=== PATIENT | female | born 1940 | race Caucasian/White ===

== ENCOUNTER 2017-12-19 01:48 | Inpatient (IN) | payer OTHER ==
[~2017-12-19] VITALS: Ht 157.5 cm; Wt 76.2 kg
[~2017-12-19 01:48] MED LIST: ARMOUR THYROID60 M1 PO; ASPIRIN EC81 M1 PO; ATORVASTATIN CA10 M1 PO; CILOSTAZOL50 M1 PO; CYANOCOBAL1000 MCG/2 SQ; HYDROCHLOROTH12.5 M3 PO; LYRICA50 M1 PO; METOPROLOL SUCC25 M1 PO; PLAVIX75 M1 PO; TRAMADOL HCL50 M1 PO; VALSARTAN320 M1 PO
--- NOTE | 2017-12-19 15:29 | Operative Report ---
Operative/Inv Procedure Report Surgery Date: 12/19/17 Name of Procedure: 1. left groin cut down 2. aortogram 3. angioplasty and stenting of the left external iliac artery with 7mm x 80 cordis stent and post dilation with 8mm x 80 balloon. 4. thrombectomy 5. placement of pravena incisional vac Pre-Operative Diagnosis: left leg rest pain Post-Operative Diagnosis: same Estimated Blood Loss: 50ml to 100ml Surgeon/Market Manager: Benedicto CALLAWAY,Zan assistant professor of archaeology-- ron singh MD Anesthesia: general endotracheal tube Specimens: wound culture Complications: none Condition: stable, extubated, transferred to pacu Operative Indication: 77 y/o f w/ hx of PAD s/p left common femoral endarterectomy with common and external iliac stenting. Pt was seen post operatively and stent was thrombosed. Uderwent diagnostic angiogram. Therefore decided to take pt back to re open left groin and attempt to re-open stent as pt has ischemic rest pain with impending tissue loss. risk/benefits alternatives discussed including risk of infection. Operative/Procedure Note Note: The patient was brought to the operating room timeout was done to verify name MRN and date of . Subsequently she was placed under general anesthesia in the supine position. We proceeded to prep and drape her bilateral groins. After antibiotics were given incision was reopened with a 15 blade scalpel. There was a previous sinus in the proximal portion of the incision and therefore we sent a wound culture from this area to guide abx treatement. We used Metzenbaums scissors to remove the previous stitches. Subsequently we identified the femoral artery which was densely adhesed to the surrounding tissue. We were able to circumferentially dissect proximally and distally in order to gain control of vessel loops. We then proceeded using micropuncture needle and wire to access the common femoral artery distal to where the previous stent was using a Glidewire we were able to go through the previous external iliac stent already up into the aorta. We then advanced a Omni flush catheter and shot an aortogram. This showed that there was some thrombus within the previous left external iliac stent and that there was some proximal narrowing and dissection to the external iliac stent. Therefore we plan to stent proximal to where the previous external iliac stent was. We advanced the Glidewire up into the infrarenal aorta we then used an 7 mm x 80 Cordis stent this was placed proximal to the previous external iliac stent and deployed with overlap into the previous vihabahn stent. W then proceeded to angioplasty the entire iliac system with a 8 mm x 80 balloon. Subsequently we used a balloon to perform a thrombectomy of the stent of the clot within the stents we withdrew this out of the small arteriotomy we had made and flushed out the artery. At this time there was very good flow through the artery and a good palpable pulse with good flow and performed a we are satisfied that we had achieved a good result we then proceeded to obtain copies hemostasis the combination of additional 6-0 Prolene stitches and clips and Gelfoam. The arteriotomy was closed also with a 6-0 Prolene pursestring stitch. We then irrigated the incision with antibiotic irrigation proceeded to close the deep layer with a 2-0 Vicryl in the subcutaneous layers with 3-0 Vicryl and closed the skin with amy RECORD of the procedure the patient's procedure was estimated to her room stable condition Findings: The infra renal aorta patent without any significant stenosis. The bilateral common iliac arteries had stents in postion which were patent with any stenosis. left external ilac artery had thrombus and area of stenosis proximal to viahabahn stent. There was thrombus within stent extending down into the common femoral artery. This was sucessfully treated with placement of a 7mm x 80 cordis stent with thrombectomy.
[2017-12-19 16:57] LABS: ABSOLUTE BASOPHIL COUNT 0 /CUMM (0.0-0.2); ABSOLUTE EOSINOPHIL COUNT 0.2 /CUMM (0.0-0.7); ABSOLUTE GRANULOCYTE CT 3.5 /CUMM (1.4-6.5); ABSOLUTE LYMPH COUNT 0.5 /CUMM (1.2-3.4); ABSOLUTE MONOCYTE COUNT 0.3 /CUMM (0.10-0.60); BASOPHIL % 0.6 % (0.0-2.0); EOSINOPHIL % 4.3 % (0-5); GRANULOCYTE % 76.5 % (42.2-75.2); HEMATOCRIT 23.6 % (37-47); MEAN CORPUSCULAR HGB 30.2 PG (27.0-31.0); MEAN CORPUSCULAR HGB CONC 32.8 G/DL (33.0-37.0); MEAN CORPUSCULAR VOLUME 91.9 FL (81.0-99.0); MEAN PLATELET VOLUME 9.3 FL (7.4-10.4); PLATELET COUNT 204 /CUMM (130-400); RBC DISTRIBUTION WIDTH 15.5 % (11.5-14.5); RED BLOOD CELL CT 2.57 /CUMM (4.20-5.40); WHITE BLOOD CELL COUNT 4.6 /CUMM (4.8-10.8)
--- NOTE | 2017-12-19 17:28 | Cons- Infect Disease ---
General Information and HPI Consulting Request Date of Consult: 12/19/17 Requested By: Zan Diane MD Reason for Consult: Rule out a surgical site infection Source of Information: patient, family History of Present Illness: This is a 77-year-old woman, status post aortic valve replacement 13 years prior to admission, with hypertension, hypothyroidism and vitamin B12 deficiency, who developed left leg pain 9 months prior to admission, status post left common femoral endarterectomy with common and external iliac stenting, with a bovine patch, one month prior to admission, with her postop course complicated by thrombosis of the stent, confirmed on angiogram 1 week prior to admission, and a sinus tract in the left groin, associated with mild erythema, with no fevers or chills, begun on Bactrim 3 days prior to admission after a superficial culture was sent, with the results of this culture not presently available, admitted today for a repeat angioplasty, with a bovine patch, stenting of the left external iliac artery and thrombectomy, with Cefazolin prophylaxis. At present she notes some discomfort in the left groin but is otherwise without complaints. Allergies/Medications Allergies: Coded Allergies: alendronate sodium (From FOSAMAX) (flank pains 12/16/17) codeine (nightmares 12/16/17) Home Med List: Aspirin (Ecotrin*) 81 MG TABLET.DR 1 TAB PO DAILY HEART HEALTH (Reported) Atorvastatin Calcium 10 MG TABLET 1 TAB PO DAILY HEART HEALTH (Reported) Cilostazol 50 MG TABLET 1 TAB PO DAILY HEART HEALTH (Reported) Clopidogrel Bisulfate (Plavix) 75 MG TABLET 1 TAB PO DAILY HEART HEALTH ( Reported) Cyanocobalamin (Vitamin B-12) (Cyanocobalamin Injection) 1,000 MCG/ML VIAL 1, 000 MCG SQ MONTHLY PERNICIOUS ANEMIA (Reported) Hydrochlorothiazide 12.5 MG CAPSULE 1 TAB PO DAILY HYPERTENSION (Reported) Metoprolol Succinate 25 MG TAB 1 TAB PO BID HEART HEALTH (Reported) Pregabalin (Lyrica) 50 MG CAPSULE 1 CAP PO DAILY PAIN (Reported) Thyroid,Pork (Junior Thyroid) 60 MG TABLET 1 TAB PO DAILY THYROID (Reported) Tramadol HCl 50 MG TABLET 1 TAB PO DAILY PAIN (Reported) Valsartan 320 MG TABLET 1 TAB PO DAILY HEART HEALTH (Reported) Past History Medical History Cardiovascular: hypertension Endocrine: hypothyroidism, Vit B12 deficiency Isolation History: Standard Surgical History Surgical History: s/p bovine AVR 2004 Psychosocial History Smoking Status: Never Smoked Review of Systems Review of Systems All Other Systems: Reviewed and Negative Exam & Diagnostic Data Last 24 Hrs of Vital Signs/I&O Vital signs are stable Physical Exam Other Physical Findings: Afebrile. She is awake and alert in no acute distress. Skin reveals no rash. HEENT negative. Neck is supple with no adenopathy. Lungs are clear. Heart regular rhythm with a 2/6 systolic ejection murmur. Abdomen is soft, nontender with positive bowel sounds. Back no CVA tenderness. Extremities left groin incisional wound VAC in place, with a drain; slightly cool feet bilaterally, with 1+ pulses, with no cyanosis, clubbing or edema. Neuro is without focality. Last 24 Hours of Lab Results: Laboratory Tests 12/19 1600 Chemistry Sodium (137 - 145 mmol/L) 139 Potassium (3.5 - 5.1 mmol/L) 3.7 Chloride (98 - 107 mmol/L) 108 H Carbon Dioxide (22 - 30 mmol/L) 23 Anion Gap (5 - 16) 8 BUN (7 - 17 mg/dL) 17 Creatinine (0.5 - 1.0 mg/dL) 1.1 H Estimated GFR (>60 ml/min) 48 L BUN/Creatinine Ratio (7 - 25 %) 15.5 Hematology CBC w Diff NO MAN DIFF REQ WBC (4.8 - 10.8 /CUMM) 4.6 L RBC (4.20 - 5.40 /CUMM) 2.57 L Hgb (12.0 - 16.0 G/DL) 7.7 L Hct (37 - 47 %) 23.6 L MCV (81.0 - 99.0 FL) 91.9 MCH (27.0 - 31.0 PG) 30.2 MCHC (33.0 - 37.0 G/DL) 32.8 L RDW (11.5 - 14.5 %) 15.5 H Plt Count (130 - 400 /CUMM) 204 MPV (7.4 - 10.4 FL) 9.3 Gran % (42.2 - 75.2 %) 76.5 H Lymphocytes % (20.5 - 51.1 %) 11.4 L Monocytes % (1.7 - 9.3 %) 7.2 Eosinophils % (0 - 5 %) 4.3 Basophils % (0.0 - 2.0 %) 0.6 Absolute Granulocytes (1.4 - 6.5 /CUMM) 3.5 Absolute Lymphocytes (1.2 - 3.4 /CUMM) 0.5 L Absolute Monocytes (0.10 - 0.60 /CUMM) 0.3 Absolute Eosinophils (0.0 - 0.7 /CUMM) 0.2 Absolute Basophils (0.0 - 0.2 /CUMM) 0 Last 24 Hours of Denys Results: Urine culture December 19 pending OR culture left inguinal wound pending Assessment/Plan Assessment/Plan Impression: This is a 77-year-old woman, status post aortic valve replacement 13 years prior to admission, status post left common femoral endarterectomy with common and external iliac stenting, with a bovine patch, one month prior to admission, with her postop course complicated by thrombosis of the stent and a sinus tract in the left groin, associated with mild erythema, with no fevers or chills, begun on Bactrim 3 days prior to admission after a superficial culture was sent, admitted today for a repeat angioplasty, with a bovine patch, and stenting of the left external iliac artery and thrombectomy. The significance of the sinus tract is unclear. Based on my discussion with Vascular surgery this was felt to extend only to the soft tissues of the left groin and not the artery; therefore an endovascular infection would be less likely. The report of erythema might suggest a cellulitis, though she has no fever or leukocytosis. The superficial culture that was sent 3 days prior to admission may be of some help in identifying the bacteria responsible for the presumed infection, though it may be contaminated with skin ko. The OR culture sent today may be more helpful, though she has been on Bactrim for 3 days, which may affect the results. She can be covered empirically for the most likely pathogens, which would include Staph aureus, including MRSA, and gram- negative rods, given the location of the wound, pending these cultures. Of note she is status post aortic valve replacement; therefore blood cultures should be obtained, though these may be affected by her recent antibiotics. Suggestion: 1. Obtain blood cultures 2 2. Obtain results of the culture sent as an outpatient and follow-up the OR culture 3. Begin Vancomycin 1 g IV every 24 hours and Ceftazidime 1 g IV every 8 hours pending above Consult Acknowledgment - Thank you for your consult request.
--- NOTE | 2017-12-19 17:48 | PN- Vascular Surgery ---
Subjective Subjective: POST-OP CHECK PT IN BED, MINIMAL LEFT GROIN PAIN. STILL HAS SENSATION OF A "BAND-LIKE PRESSURE" AROUND LEFT FOOT THAT WAS THERE PRIOR TO SURGERY. DENIES CP/SOB/KLEIN Objective Vital Signs and I&Os VVS AFEBRILE Physical Exam: GEN-NAD RESP- CLEAR CARDIO-RRR ABD-ND,SOFT, NT LEFT GROIN WITH PRAVENA IN PLACE WITH SANGUINEOUS DRAINAGE. INFERIOR ASPECT OF DRESSING RE-INFORCED WITH SMALL TEGADERM EXT- NO SIGNAL APPRECIATED ON LEFT PT OR DP, WAVEFORM SEEN ON PULSE OX WHEN PLACED ON LEFT 2ND TOE. +SIGNAL ON RIGHT PT. FEET ARE WARM AND DRY BILATERALLY DISTAL SENSORY AND MOTOR FUNCTION INTACT Results Last 48 Hours of Labs: Laboratory Tests 12/19 1600 Chemistry Sodium (137 - 145 mmol/L) 139 Potassium (3.5 - 5.1 mmol/L) 3.7 Chloride (98 - 107 mmol/L) 108 H Carbon Dioxide (22 - 30 mmol/L) 23 Anion Gap (5 - 16) 8 BUN (7 - 17 mg/dL) 17 Creatinine (0.5 - 1.0 mg/dL) 1.1 H Estimated GFR (>60 ml/min) 48 L BUN/Creatinine Ratio (7 - 25 %) 15.5 Hematology CBC w Diff NO MAN DIFF REQ WBC (4.8 - 10.8 /CUMM) 4.6 L RBC (4.20 - 5.40 /CUMM) 2.57 L Hgb (12.0 - 16.0 G/DL) 7.7 L Hct (37 - 47 %) 23.6 L MCV (81.0 - 99.0 FL) 91.9 MCH (27.0 - 31.0 PG) 30.2 MCHC (33.0 - 37.0 G/DL) 32.8 L RDW (11.5 - 14.5 %) 15.5 H Plt Count (130 - 400 /CUMM) 204 MPV (7.4 - 10.4 FL) 9.3 Gran % (42.2 - 75.2 %) 76.5 H Lymphocytes % (20.5 - 51.1 %) 11.4 L Monocytes % (1.7 - 9.3 %) 7.2 Eosinophils % (0 - 5 %) 4.3 Basophils % (0.0 - 2.0 %) 0.6 Absolute Granulocytes (1.4 - 6.5 /CUMM) 3.5 Absolute Lymphocytes (1.2 - 3.4 /CUMM) 0.5 L Absolute Monocytes (0.10 - 0.60 /CUMM) 0.3 Absolute Eosinophils (0.0 - 0.7 /CUMM) 0.2 Absolute Basophils (0.0 - 0.2 /CUMM) 0 Assessment/Plan Assessment/Plan 77YO F SP LEFT ANGIO WITH EXTERNAL ILIAC STENT POD0. STABLE Q1H NEURO CHECKS DVT PPX- TO GET ASA TODAY, WILL LIKELY START HEPARIN DRIP IN AM ABX PER ID, APPRECIATE INPUT WOUNDCARE- PRAVENA BEDREST OVERNIGHT HH DIET IVF OVERNIGHT KAHN TO STAY IN OVERNIGHT Core Measures Venous Thromboembolism VTE Risk Factors Surgery No Mechanical VTE Prophylaxis d/t N/A MechProphylax Ordered No VTE Pharm Prophylaxis d/t Surgical Contraindication
[2017-12-19 20:00] VITALS: BP 130/60
--- NOTE | 2017-12-19 20:05 | Event Note ---
Event Note Event Note: Called by RN to evaluate left groin incisional bleeding. just arrived from PACU to ICU. Pt stable, SBP 120s, [id number]. Some pain in left foot, no worse than preop, no motor difficulties. Provena vac on, blood leaking from tegaderm- ? clotted. canister already changed in PACU. Dressing taken down, small oozing from 2 areas of staple line. some ecchymosis and ttp at incision, though soft. wound redressed with bulky gauze dressing, compressed with tape and iv fluid bag. No palpable pedal pulses, no signals appreciated (other than right pt). left foot cool but not cold, good color, gross sensation intact, gross motor intact, nontender. BRYAN Diane, aware of findings. Will continue to closely monitor, continue q1hr neurovasc checks by nursing
[2017-12-20] VITALS: BP 98/50
[2017-12-20 01:08] LABS: ABSOLUTE BASOPHIL COUNT 0 /CUMM (0.0-0.2); ABSOLUTE EOSINOPHIL COUNT 0 /CUMM (0.0-0.7); ABSOLUTE GRANULOCYTE CT 3.8 /CUMM (1.4-6.5); ABSOLUTE LYMPH COUNT 0.4 /CUMM (1.2-3.4); ABSOLUTE MONOCYTE COUNT 0.2 /CUMM (0.10-0.60); BASOPHIL % 0.3 % (0.0-2.0); EOSINOPHIL % 0.1 % (0-5); GRANULOCYTE % 86.3 % (42.2-75.2); MEAN CORPUSCULAR HGB CONC 33.5 G/DL (33.0-37.0); MEAN CORPUSCULAR VOLUME 89.6 FL (81.0-99.0); MEAN PLATELET VOLUME 8.7 FL (7.4-10.4); PLATELET COUNT 187 /CUMM (130-400); RBC DISTRIBUTION WIDTH 15.4 % (11.5-14.5); RED BLOOD CELL CT 2.17 /CUMM (4.20-5.40); WHITE BLOOD CELL COUNT 4.5 /CUMM (4.8-10.8)
[2017-12-20 01:16] LABS: PT 12.2 SEC (9.4-12.5); PTT 26 SEC (25-37)
[2017-12-20 01:18] LABS: HEMATOCRIT 19.5 % (37-47)
[2017-12-20 04:00] VITALS: BP 122/44
--- NOTE | 2017-12-20 06:41 | PN- Vascular Surgery ---
Subjective Subjective: -still with pain in left foot "like bands around my foot". no cp/sob/n/v. bedrest overnight -remains in icu for close nursing assessment (q1hr neurovasc checks), intermittent pt signal overnight per rn -SBP into 80s and 90s overnight, UO slowed (marie), bolused 500cc NS. labs checked- H&H 6.5/19.5 (pacu hct 23, preop hct in paper chart 37), BUN/Cr elevated -2U prbc given- SBP now in 120s -UO improved Objective Vital Signs and I&Os Vital Signs Date Time Temp Pulse Resp B/P B/P Pulse O2 O2 Flow FiO2 Mean Ox Delivery Rate 12/20 0400 97.5 63 14 122/44 98 Room Air 12/20 0400 97 Room Air 12/20 0000 95 Room Air 12/20 0000 97.7 84 12 98/50 95 Room Air 12/19 2214 108 21 110/52 12/20 1999 98.8 92 16 130/60 96 Room Air Room Air 12/19 2000 97 Room Air 12/19 1858 96 Room Air Room Air Intake & Output 12/20 0800 12/20 0000 12/19 1600 12/19 0800 12/19 0000 12/18 1600 Intake Total 695 Output Total 100 Balance 595 Intake, IV 335 Intake, Oral 360 Number 0 Bowel Movements Output, Urine 100 Patient 165 lb Weight Weight Reported by Patient Measurement Method Physical Exam: gen- nad card- s1s2 rrr pulm- ctab abd- soft nt ext- calves soft nt bl rle: groin w ecchymosis, ttp, +pt signal, foot warm lle: groin incision dressed, foot warm, no palp pulses, no signals, gross motor/ sensation intact, small eschar heel, multiple dark lesions on toes (chronic per pt) Current Medications: Current Medications Sig/Gabi Start time Last Medication Dose Route Stop Time Status Admin Acetaminophen 1,000 MG .STK-MED ONE 12/19 1534 DC IV 12/19 1535 Aspirin Buffered 81 MG DAILY 12/20 1000 DC PO Aspirin Buffered 81 MG DAILY 12/19 2200 AC 12/19 PO 2212 Aspirin Buffered 81 MG DAILY 12/19 1550 DC PO Atorvastatin Calcium 10 MG 1700 12/20 1700 DC PO Atorvastatin Calcium 10 MG 1700 12/20 1700 AC PO Ceftazidime 1,000 MG IQ8 12/20 0000 AC 12/20 IV 0011 Cilostazol 50 MG DAILY 12/20 1000 CAN PO Dextrose/Sodium 1,000 ML .[id number] 12/20 1999 AC 12/19 Chloride IV 2000 Docusate Sodium 100 MG BID 12/19 2199 AC PO Fentanyl Citrate 300 MCG .STK-MED ONE 12/19 1148 DC IM 12/19 1149 Hydrochlorothiazide 12.5 MG DAILY 12/20 1000 DC PO Hydrochlorothiazide 12.5 MG DAILY 12/20 1000 AC PO Losartan Potassium 50 MG DAILY 12/20 1000 DC PO Losartan Potassium 50 MG DAILY 12/20 1000 AC PO Metoprolol Tartrate 25 MG BID 12/19 2199 DC PO Metoprolol Tartrate 25 MG BID 12/19 2199 AC 12/19 PO 2214 Morphine Sulfate 8 MG .STK-MED ONE 12/19 1223 DC IM 12/19 1224 Ondansetron HCl 4 MG Q6P PRN 12/20 1999 AC IV Oxycodone/ 1 TAB Q4P PRN 12/20 1999 AC 12/19 Acetaminophen PO 2219 Oxycodone/ 2 TAB Q4P PRN 12/20 1999 AC Acetaminophen PO Pregabalin 50 MG DAILY 12/20 1000 DC PO Pregabalin 50 MG DAILY 12/20 1000 AC PO Sodium Chloride 500 ML BOLUS ONE 12/20 0030 DC 12/20 IV 12/20 0129 0025 Thyroid 1 GR DAILY AC 12/20 0700 DC PO Thyroid 1 GR DAILY AC 12/20 0700 AC PO Tramadol HCl 50 MG DAILY 12/20 1000 DC PO Tramadol HCl 50 MG DAILY 12/20 1000 AC PO Vancomycin HCl 1,000 MG DAILY 12/19 1811 AC 12/19 Dextrose/Water 250 ML IV 2108 Results Last 48 Hours of Labs: Laboratory Tests 12/20 12/20 0600 0052 Chemistry Sodium (137 - 145 mmol/L) Cancelled 134 L Potassium (3.5 - 5.1 mmol/L) Cancelled 4.5 Chloride (98 - 107 mmol/L) Cancelled 102 Carbon Dioxide (22 - 30 mmol/L) Cancelled 23 Anion Gap (5 - 16) Cancelled 8 BUN (7 - 17 mg/dL) Cancelled 20 H Creatinine (0.5 - 1.0 mg/dL) Cancelled 1.3 H Estimated GFR (>60 ml/min) 40 L BUN/Creatinine Ratio (7 - 25 %) Cancelled 15.4 Coagulation PT (9.4 - 12.5 SEC) Cancelled 12.2 INR (0.90 - 1.19) Cancelled 1.12 APTT (25 - 37 SEC) 26 Hematology CBC w Diff Cancelled MAN DIFF ORDERED WBC (4.8 - 10.8 /CUMM) Cancelled 4.5 L RBC (4.20 - 5.40 /CUMM) Cancelled 2.17 L Hgb (12.0 - 16.0 G/DL) Cancelled 6.5 *L Hct (37 - 47 %) Cancelled 19.5 *L MCV (81.0 - 99.0 FL) Cancelled 89.6 MCH (27.0 - 31.0 PG) Cancelled 30.0 MCHC (33.0 - 37.0 G/DL) Cancelled 33.5 RDW (11.5 - 14.5 %) Cancelled 15.4 H Plt Count (130 - 400 /CUMM) Cancelled 187 MPV (7.4 - 10.4 FL) Cancelled 8.7 Gran % (42.2 - 75.2 %) 86.3 H Lymphocytes % (20.5 - 51.1 %) 8.4 L Monocytes % (1.7 - 9.3 %) 4.9 Eosinophils % (0 - 5 %) 0.1 Basophils % (0.0 - 2.0 %) 0.3 Absolute Granulocytes (1.4 - 6.5 /CUMM) 3.8 Segmented Neutrophils (42.2 - 75.2 %) 77 H Band Neutrophils (0.0 - 5.0 %) 1 Absolute Lymphocytes (1.2 - 3.4 /CUMM) 0.4 L Lymphocytes (20.5 - 51.1 %) 14 L Monocytes (1.7 - 9.3 %) 7 Absolute Monocytes (0.10 - 0.60 /CUMM) 0.2 Absolute Eosinophils (0.0 - 0.7 /CUMM) 0 Basophils (0.0 - 2.0 %) 1 Absolute Basophils (0.0 - 0.2 /CUMM) 0 Platelet Estimate (ADEQUATE) ADEQUATE Polychromasia 1+ Poikilocytosis 1+ Ovalocytes 1+ Other Body Source Fld Total RBCs Counted (%) 100 03/19 1600 Chemistry Sodium (137 - 145 mmol/L) 139 Potassium (3.5 - 5.1 mmol/L) 3.7 Chloride (98 - 107 mmol/L) 108 H Carbon Dioxide (22 - 30 mmol/L) 23 Anion Gap (5 - 16) 8 BUN (7 - 17 mg/dL) 17 Creatinine (0.5 - 1.0 mg/dL) 1.1 H Estimated GFR (>60 ml/min) 48 L BUN/Creatinine Ratio (7 - 25 %) 15.5 Hematology CBC w Diff NO MAN DIFF REQ WBC (4.8 - 10.8 /CUMM) 4.6 L RBC (4.20 - 5.40 /CUMM) 2.57 L Hgb (12.0 - 16.0 G/DL) 7.7 L Hct (37 - 47 %) 23.6 L MCV (81.0 - 99.0 FL) 91.9 MCH (27.0 - 31.0 PG) 30.2 MCHC (33.0 - 37.0 G/DL) 32.8 L RDW (11.5 - 14.5 %) 15.5 H Plt Count (130 - 400 /CUMM) 204 MPV (7.4 - 10.4 FL) 9.3 Gran % (42.2 - 75.2 %) 76.5 H Lymphocytes % (20.5 - 51.1 %) 11.4 L Monocytes % (1.7 - 9.3 %) 7.2 Eosinophils % (0 - 5 %) 4.3 Basophils % (0.0 - 2.0 %) 0.6 Absolute Granulocytes (1.4 - 6.5 /CUMM) 3.5 Absolute Lymphocytes (1.2 - 3.4 /CUMM) 0.5 L Absolute Monocytes (0.10 - 0.60 /CUMM) 0.3 Absolute Eosinophils (0.0 - 0.7 /CUMM) 0.2 Absolute Basophils (0.0 - 0.2 /CUMM) 0 Assessment/Plan Assessment/Plan A- POD1 sp left groin cutdown/iliac angio/thrombectomy, ect iliac stent, with incisional oozing postop- provena vac removed and bulky gauze dressing applied, with acute blood loss anemia posetoperatively requiring 2u prbc transfusion with good response, with no dopplerable pedal signals appreciated this am. P- check post-transfusion labs at noon keep marie in place in setting of EZEKIEL (prerenal, dehydration) cont ivf ?anticoagulation?- initial plan was to start therapeutic heparin gtt this am, will ajay w attending diet as tolerated oob ok this am home meds- hold antihtns if hypotensive discussed with Dr. Diane Core Measures Venous Thromboembolism VTE Risk Factors Surgery No Mechanical VTE Prophylaxis d/t N/A MechProphylax Ordered No VTE Pharm Prophylaxis d/t Surgical Contraindication
[2017-12-20 08:00] VITALS: BP 128/50
--- NOTE | 2017-12-20 08:34 | RADIOLOGY REPORT ---
EXAMINATION: Iliac femoral arteriogram, stent insertion angioplasty and thrombectomy, intraoperative CLINICAL INDICATION: Vascular disease COMPARISON: There are no prior studies for comparison. TECHNIQUE: Intraoperative fluoroscopic images.. FINDINGS/IMPRESSION: Irregularity of the siu of the arterial structures is consistent with presence of calcified atherosclerotic plaque. Fluoroscopy time: 7 minutes and 49 seconds. Images: 351
--- NOTE | 2017-12-20 10:00 | PN- Vascular Surgery ---
Subjective Subjective: Pt seen and examined. Still has some left foot pain but overall foot apperas improved. recieved 2 uprbcs last night for low uop and hct of 19. now making good urine. hemodynamically stable. Review of Systems: right foot pain Objective Vital Signs and I&Os Vital Signs Date Time Temp Pulse Resp B/P B/P Pulse O2 O2 Flow FiO2 Mean Ox Delivery Rate 12/20 0941 75 138/44 12/20 0941 76 138/44 12/20 0800 97.6 62 18 128/50 96 Room Air 12/20 0400 97.5 63 14 122/44 98 Room Air 12/20 0400 97 Room Air 12/20 0000 95 Room Air 12/20 0000 97.7 84 12 98/50 95 Room Air 12/19 2214 108 21 110/52 12/20 1999 98.8 92 16 130/60 96 Room Air Room Air 12/20 1999 97 Room Air 12/19 1858 96 Room Air Room Air Intake & Output 12/20 1600 12/20 0800 12/20 0000 12/19 1600 12/19 0800 12/19 0000 Intake Total 1095 695 Output Total 250 100 Balance 845 595 Intake, Blood 520 Product Intake, IV 575 335 Intake, Oral 0 360 Number 0 0 Bowel Movements Output, Urine 250 100 Patient 165 lb Weight Weight Reported by Patient Measurement Method ok Physical Exam: groin incision c/d/i. left foot wwp with good cap refill. faint pt signal. Assessment/Plan Assessment/Plan 77 y/o f w/ pad s/p left groin cut down, thrombectomy and iliac stent for ischemic rest pain in setting of thromosed iliac stent. --will start heparin 500 units non titrating. continue asa. dc plavix/pletal -on abx per id. culture growing staph aureus. -oob/ambulate -dc marie repeat hct. Core Measures Venous Thromboembolism VTE Risk Factors Surgery No Mechanical VTE Prophylaxis d/t N/A MechProphylax Ordered No VTE Pharm Prophylaxis d/t Surgical Contraindication
--- NOTE | 2017-12-20 10:33 | PN- Infect Dx ---
Subjective Subjective: Afebrile. She continues to complain of a band like pain in the left foot, which was present prior to admission. She has minimal discomfort in the left groin. Objective Last 24 Hrs of Vital Signs/I&O Vital Signs Date Time Temp Pulse Resp B/P B/P Pulse O2 O2 Flow FiO2 Mean Ox Delivery Rate 12/20 0941 75 138/44 12/20 0941 76 138/44 12/20 0800 97.6 62 18 128/50 96 Room Air 12/20 0400 97.5 63 14 122/44 98 Room Air 12/20 0400 97 Room Air 12/20 0000 95 Room Air 12/20 0000 97.7 84 12 98/50 95 Room Air 12/19 2214 108 21 110/52 12/20 1999 98.8 92 16 130/60 96 Room Air Room Air 12/20 1999 97 Room Air 12/19 1858 96 Room Air Room Air Intake & Output 12/20 1600 12/20 0800 12/20 0000 Intake Total 1095 695 Output Total 250 100 Balance 845 595 Intake, Blood 520 Product Intake, IV 575 335 Intake, Oral 0 360 Number 0 0 Bowel Movements Output, Urine 250 100 Patient 165 lb Weight Weight Reported by Patient Measurement Method Physical Exam Other Physical Findings: She appears comfortable in no acute distress Lungs are clear Heart regular rhythm with a 1/6 systolic ejection murmur Extremities left groin dressing intact; left foot cool to touch, with a palpable pulse Kimball catheter remains in place Results Last 24 Hours of Lab Results: Laboratory Tests 12/20 12/20 0600 0052 Chemistry Sodium (137 - 145 mmol/L) Cancelled 134 L Potassium (3.5 - 5.1 mmol/L) Cancelled 4.5 Chloride (98 - 107 mmol/L) Cancelled 102 Carbon Dioxide (22 - 30 mmol/L) Cancelled 23 Anion Gap (5 - 16) Cancelled 8 BUN (7 - 17 mg/dL) Cancelled 20 H Creatinine (0.5 - 1.0 mg/dL) Cancelled 1.3 H Estimated GFR (>60 ml/min) 40 L BUN/Creatinine Ratio (7 - 25 %) Cancelled 15.4 Coagulation PT (9.4 - 12.5 SEC) Cancelled 12.2 INR (0.90 - 1.19) Cancelled 1.12 APTT (25 - 37 SEC) 26 Hematology CBC w Diff Cancelled MAN DIFF ORDERED WBC (4.8 - 10.8 /CUMM) Cancelled 4.5 L RBC (4.20 - 5.40 /CUMM) Cancelled 2.17 L Hgb (12.0 - 16.0 G/DL) Cancelled 6.5 *L Hct (37 - 47 %) Cancelled 19.5 *L MCV (81.0 - 99.0 FL) Cancelled 89.6 MCH (27.0 - 31.0 PG) Cancelled 30.0 MCHC (33.0 - 37.0 G/DL) Cancelled 33.5 RDW (11.5 - 14.5 %) Cancelled 15.4 H Plt Count (130 - 400 /CUMM) Cancelled 187 MPV (7.4 - 10.4 FL) Cancelled 8.7 Gran % (42.2 - 75.2 %) 86.3 H Lymphocytes % (20.5 - 51.1 %) 8.4 L Monocytes % (1.7 - 9.3 %) 4.9 Eosinophils % (0 - 5 %) 0.1 Basophils % (0.0 - 2.0 %) 0.3 Absolute Granulocytes (1.4 - 6.5 /CUMM) 3.8 Segmented Neutrophils (42.2 - 75.2 %) 77 H Band Neutrophils (0.0 - 5.0 %) 1 Absolute Lymphocytes (1.2 - 3.4 /CUMM) 0.4 L Lymphocytes (20.5 - 51.1 %) 14 L Monocytes (1.7 - 9.3 %) 7 Absolute Monocytes (0.10 - 0.60 /CUMM) 0.2 Absolute Eosinophils (0.0 - 0.7 /CUMM) 0 Basophils (0.0 - 2.0 %) 1 Absolute Basophils (0.0 - 0.2 /CUMM) 0 Platelet Estimate (ADEQUATE) ADEQUATE Polychromasia 1+ Poikilocytosis 1+ Ovalocytes 1+ Other Body Source Fld Total RBCs Counted (%) 100 03/ 1600 Chemistry Sodium (137 - 145 mmol/L) 139 Potassium (3.5 - 5.1 mmol/L) 3.7 Chloride (98 - 107 mmol/L) 108 H Carbon Dioxide (22 - 30 mmol/L) 23 Anion Gap (5 - 16) 8 BUN (7 - 17 mg/dL) 17 Creatinine (0.5 - 1.0 mg/dL) 1.1 H Estimated GFR (>60 ml/min) 48 L BUN/Creatinine Ratio (7 - 25 %) 15.5 Hematology CBC w Diff NO MAN DIFF REQ WBC (4.8 - 10.8 /CUMM) 4.6 L RBC (4.20 - 5.40 /CUMM) 2.57 L Hgb (12.0 - 16.0 G/DL) 7.7 L Hct (37 - 47 %) 23.6 L MCV (81.0 - 99.0 FL) 91.9 MCH (27.0 - 31.0 PG) 30.2 MCHC (33.0 - 37.0 G/DL) 32.8 L RDW (11.5 - 14.5 %) 15.5 H Plt Count (130 - 400 /CUMM) 204 MPV (7.4 - 10.4 FL) 9.3 Gran % (42.2 - 75.2 %) 76.5 H Lymphocytes % (20.5 - 51.1 %) 11.4 L Monocytes % (1.7 - 9.3 %) 7.2 Eosinophils % (0 - 5 %) 4.3 Basophils % (0.0 - 2.0 %) 0.6 Absolute Granulocytes (1.4 - 6.5 /CUMM) 3.5 Absolute Lymphocytes (1.2 - 3.4 /CUMM) 0.5 L Absolute Monocytes (0.10 - 0.60 /CUMM) 0.3 Absolute Eosinophils (0.0 - 0.7 /CUMM) 0.2 Absolute Basophils (0.0 - 0.2 /CUMM) 0 Last 24 Hours of Denys Results: Blood cultures 2 December 19 negative OR culture December 19 labeled left inguinal wound positive for Staph aureus Urine culture December 19 negative Assessment/Plan ID Impression: Stable status post left groin cutdown, thrombectomy and iliac stent yesterday for ischemic pain in the left foot status post thrombosed iliac stent. It appears that she had significant bleeding from her wound, resulting in a drop in her H&H, requiring 2 units of blood. She remains afebrile with a normal white blood cell count on Vancomycin and Ceftazidime, begun empirically yesterday for a possible surgical site infection in the left groin following her previous surgery, with Staph aureus isolated from the preliminary culture. Note that she was on Bactrim for 3 days prior to admission after a superficial wound culture was sent by the vascular surgical PA, and this culture result should be followed up. Suggestion: 1. Obtain results of the outpatient culture of the left groin wound sent 3 days prior to admission 2. Follow-up the OR culture 3. Discontinue Ceftazidime 4. Continue Vancomycin pending above
[2017-12-20 12:22] LABS: ABSOLUTE BASOPHIL COUNT 0 /CUMM (0.0-0.2); ABSOLUTE EOSINOPHIL COUNT 0 /CUMM (0.0-0.7); ABSOLUTE MONOCYTE COUNT 0.9 /CUMM (0.10-0.60)
[2017-12-20 12:31] LABS: ABSOLUTE GRANULOCYTE CT 4.9 /CUMM (1.4-6.5); BASOPHIL % 0.5 % (0.0-2.0); EOSINOPHIL % 0.6 % (0-5); GRANULOCYTE % 70.6 % (42.2-75.2); MEAN CORPUSCULAR HGB 29.3 PG (27.0-31.0); MEAN CORPUSCULAR HGB CONC 32.8 G/DL (33.0-37.0); MEAN CORPUSCULAR VOLUME 89.4 FL (81.0-99.0); MEAN PLATELET VOLUME 9.3 FL (7.4-10.4); PLATELET COUNT 183 /CUMM (130-400); RBC DISTRIBUTION WIDTH 15.7 % (11.5-14.5)
[2017-12-20 12:32] LABS: HEMATOCRIT 27.5 % (37-47); RED BLOOD CELL CT 3.08 /CUMM (4.20-5.40); WHITE BLOOD CELL COUNT 6.9 /CUMM (4.8-10.8)
[2017-12-20 12:33] LABS: PTT 32 SEC (25-37)
[2017-12-20 16:00] VITALS: BP 120/50
[2017-12-20 20:00] VITALS: BP 132/44
[2017-12-20 22:33] VITALS: BP 128/56
[2017-12-21 06:37] VITALS: BP 145/51
--- NOTE | 2017-12-21 07:59 | Patient Discharge Instructions ---
Discharge Instructions General Discharge Information You were seen/treated for: left leg rest pain You had these procedures: Surgery Date: 12/19/17 Name of Procedure: 1. left groin cut down 2. aortogram 3. angioplasty and stenting of the left external iliac artery with 7mm x 80 cordis stent and post dilation with 8mm x 80 balloon. 4. thrombectomy 5. placement of pravena incisional vac Watch for these problems: fever>101.3, increased pain, redness/swelling/drainage, dizziness, shortness of breath, chest pains, numbness/tingling/paresthesias Call Surgeon to remove: Wallace Special Instructions: Complete antibiotic, Keflex, as prescribed until 12/26 Take aspirin 81 daily and xarelto 15 mg twice a day for 21 days for clot prevention Stop taking Plavix and Pletal Please call to schedule appointment with Dr. Diane in 10-14 days for staple removal and follow up Diet Continue normal diet: Yes Recommended Diet: Heart Healthy Acute Coronary Syndrome Inclusion Criteria At DC or during hospital stay patient has or had the following: ACS DIAGNOSIS No Discharge Core Measures Meds if any: Prescribed or Continued at Discharge Meds if any: NOT Prescribed or Continued at Discharge Congestive Heart Failure Inclusion Criteria At DC or during hospital stay patient has or had the following: CHF DIAGNOSIS No Discharge Core Measures Meds if any: Prescribed or Continued at Discharge Meds if any: NOT Prescribed or Continued at Discharge Cerebrovascular accident Inclusion Criteria At DC or during hospital stay patient has or had the following: CVA/TIA Diagnosis No Discharge Core Measures Meds if any: Prescribed or Continued at Discharge Meds if any: NOT Prescribed or Continued at Discharge Venous thromboembolism Inclusion Criteria VTE Diagnosis No VTE Type NONE VTE Confirmed by (Test) NONE Discharge Core Measures - Per Current guidelines, there needs to be overlap - treatment for the first 5 days of Warfarin therapy. - If discharged on Warfarin prior to 5 days of - overlap therapy, the patient will need to be - assessed for post discharge needs including - *Post discharge parental anticoagulation - *Warfarin and/or parental anticoagulation education - *Follow up date to check INR post discharge At least 5 days overlap therapy as Inpatient No Meds if any: Prescribed or Continued at Discharge Note: Overlap Therapy is Warfarin and Anticoagulant Meds if any: NOT Prescribed or Continued at Discharge
--- NOTE | 2017-12-21 08:14 | Surgical Discharge Summary ---
Visit Information Visit Dates Admission Date: 12/19/17 Discharge Date: 12/22/17 History of Present Illness Chief Complaint: left leg rest pain Medical History Blood Transfusion Hx: No Cardiovascular: hypertension Endocrine: hypothyroidism, Vit B12 deficiency History of MRSA: No History of VRE: No History of CDIFF: No Isolation History: Standard Surgical History Pertinent Surgical History: s/p bovine AVR 2004 Psychosocial History Where Do You Live? Home Who Do You Live With? Patient/Self Services at Home: None What is Your Primary Language? Japanese Review of Systems: see h&p Hospital Course Course Attending Physician: Zan Diane MD [facility]: Electively scheduled vascular surgery on 12/19/17 by for left leg rest pain, which included left groin cut down, aortogram, angioplasty and stenting of the left external iliac artery with 7mm x 80 cordis stent and post dilation with 8mm x 80 balloon, thrombectomy, and placement of pravena incisional vac. Post- operatively the patient was transfused 2u prbc for acute denny-operative blood loss anemia. She was monitored in the ICU overnight, and transferred out of icu on POD#1. was consulted for co-management of possible surgical site infection in the left groin following her previous surgery, with Staph aureus isolated from the preliminary culture. IV vancomycin started in the hospital, which was transitioned Ancef and then oral Keflex upon discharge. She was continued on a heparin drip during her hospitalization, which was transitioned to xarelto 15 bid and aspirin when discharged to home. She was assessed by PT, and is going home with vna services. Her left groin dressings have been changed daily with dry guaze, and she will need amy removed around post-op day#14. Complications: None Allergies: Coded Allergies: alendronate sodium (From FOSAMAX) (flank pains 12/16/17) codeine (nightmares 12/16/17) Disposition Summary Disposition Principal Diagnosis: Left leg rest pain Additional Diagnosis: Same as above, s/p Surgery Date: 12/19/17 Name of Procedure: 1. left groin cut down 2. aortogram 3. angioplasty and stenting of the left external iliac artery with 7mm x 80 cordis stent and post dilation with 8mm x 80 balloon. 4. thrombectomy 5. placement of pravena incisional vac Discharge Disposition: home health services Discharge Instructions General Discharge Information Code Status: Full Code Patient's Diet: heart healthy diet Patient's Activity: oob/ambulation as tolerated Follow-Up Instructions/Appts: will need amy removed around post-op day#14 antibiotics as recommended by , according to operative cultures of the groin Medications at Discharge Discharge Medications: Stop taking the following medications: Cilostazol (Cilostazol) 50 MG TABLET ORAL DAILY Clopidogrel Bisulfate (Plavix) 75 MG TABLET ORAL DAILY Continue taking these medications: Valsartan (Valsartan) 320 MG TABLET 1 Tablet ORAL DAILY Comments: NOT GIVEN IN THE HOSPITAL Metoprolol Succinate (Metoprolol Succinate) 25 MG TAB 1 Tablet ORAL TWICE DAILY Comments: Last Taken: 12/22/17 Time: 1015 AM Atorvastatin Calcium (Atorvastatin Calcium) 10 MG TABLET 1 Tablet ORAL DAILY Comments: Last Taken: 12/21/17 Time: 445 PM Hydrochlorothiazide (Hydrochlorothiazide) 12.5 MG CAPSULE 1 Tablet ORAL DAILY Comments: Last Taken: 12/22/17 Time: 1015 AM Pregabalin (Lyrica) 50 MG CAPSULE 1 Capsule ORAL DAILY Comments: Last Taken: 12/22/17 Time: 1015 AM Tramadol HCl (Tramadol HCl) 50 MG TABLET 1 Tablet ORAL DAILY Comments: Last Taken: 12/22/17 Time: 1015 AM Aspirin (Ecotrin*) 81 MG TABLET.DR 1 Tablet ORAL DAILY Comments: Last Taken: 12/22/17 Time: 1015 AM Thyroid,Pork ([place] Thyroid) 60 MG TABLET 1 Tablet ORAL DAILY Comments: Last Taken: 12/22/17 Time: 545 AM Cyanocobalamin (Vitamin B-12) (Cyanocobalamin Injection) 1,000 MCG/ML VIAL 1,000 Microgram SUB-Q MONTHLY Comments: NOT GIVEN IN THE HOSPITAL Start taking the following new medications: Cephalexin (Keflex) 500 MG CAPSULE 1 Capsule ORAL EVERY SIX HOURS Qty = 18 No Refills Comments: NOT GIVEN IN THE HOSPITAL Oxycodone HCl/Acetaminophen (Percocet 5-325 MG Tablet) 5 MG-325 MG TABLET 1-2 Tablet ORAL EVERY 4-6 HOURS as needed for PAIN Qty = 30 No Refills Comments: Last Taken: 12/22/17 Time: 515 AM Rivaroxaban (Xarelto) 15 MG TABLET 1 Tablet ORAL TWICE DAILY Qty = 42 No Refills Comments: NOT GIVEN IN THE HOSPITAL Copies To: Perla Hernández APRN; Jona CALLAWAY,Zak Espinoza
--- NOTE | 2017-12-21 08:50 | PN- Vascular Surgery ---
Subjective Subjective: Transferred out of icu yesterday. She reports her left foot pain improves with percocet. Out of bed to bathroom. No dizziness. No shortness of breath. No chest pains. Voiding well. Tolerating diet. No nausea. Passing flatus, but no bm yet. She lives alone, but does have help from friends / family. She states she is not interested in home PT, but she had standing vna help prior to this surgery. Objective Vital Signs and I&Os Vital Signs Date Time Temp Pulse Resp B/P B/P Pulse O2 O2 Flow FiO2 Mean Ox Delivery Rate 12/21 0637 97.9 82 20 145/51 94 Room Air 12/20 2233 98.4 68 18 128/56 95 Room Air 12/20 2119 70 132/44 12/21 1999 97.5 70 20 132/44 95 Room Air 12/20 1600 97.6 72 24 120/50 96 Room Air 12/20 0941 75 138/44 12/20 0941 76 138/44 Intake & Output 12/21 1600 12/21 0800 12/21 0000 12/20 1600 12/20 0800 12/20 0000 Intake Total 920 1380 1095 695 Output Total 750 225 250 100 Balance 170 1155 845 595 Intake, Blood 520 Product Intake, IV 680 820 575 335 Intake, Oral 240 560 0 360 Number 0 0 0 0 Bowel Movements Output, Urine 750 225 250 100 Patient 165 lb Weight Weight Reported by Patient Measurement Method Physical Exam: General - alert & oriented x 3. comfortable. no acute distress. Lungs - clear bilaterally. no w/r/r. Cardiac - s1s2. reg. Abdomen - soft. nontender. Extremities - left groin dressing changed. incision approximated with amy. no erythema or exudates. no hematoma appreciated. left foot warm. unable to find dopplerable PT signal. 1+ edema appreciated. nvi. Current Medications: Current Medications Sig/Gabi Start time Last Medication Dose Route Stop Time Status Admin Aspirin Buffered 81 MG DAILY 12/19 220 AC 12/20 PO 0941 Atorvastatin Calcium 10 MG 1700 12/20 1700 DC PO Atorvastatin Calcium 10 MG 1700 12/20 1700 AC 12/20 PO 1559 Ceftazidime 1,000 MG IQ8 12/20 0000 DC 12/20 IV 0818 Dextrose/Sodium 1,000 ML .[id number] 12/20 1999 AC 12/21 Chloride IV 0600 Docusate Sodium 100 MG BID 12/19 2199 AC 12/20 PO 2119 Heparin Sodium 5,000 UNIT Q24H 12/20 09 CAN (Porcine) IV Sodium Chloride 500 ML Heparin Sodium 25,000 UNIT Q24H 12/20 0915 AC 12/20 (Porcine) IV 0941 Sodium Chloride 500 ML Hydrochlorothiazide 12.5 MG DAILY 12/20 1000 DC PO Hydrochlorothiazide 12.5 MG DAILY 12/20 1000 AC 12/20 PO 0941 Losartan Potassium 50 MG DAILY 12/20 1000 DC PO Losartan Potassium 50 MG DAILY 12/20 1000 AC 12/20 PO 0941 Metoprolol Tartrate 25 MG BID 12/19 2199 AC 12/20 PO 2119 Ondansetron HCl 4 MG Q6P PRN 12/20 1999 AC IV Oxycodone/ 1 TAB Q4P PRN 12/20 1999 AC 12/20 Acetaminophen PO 203 Oxycodone/ 2 TAB Q4P PRN 12/20 1999 AC 12/21 Acetaminophen PO 0630 Pregabalin 50 MG DAILY 12/20 1000 DC PO Pregabalin 50 MG DAILY 12/20 1000 AC 12/20 PO 0942 Thyroid 1 GR DAILY AC 12/20 0700 AC 12/21 PO 0628 Tramadol HCl 50 MG DAILY 12/20 1000 DC PO Tramadol HCl 50 MG DAILY 12/20 1000 AC 12/20 PO 0940 Vancomycin HCl 1,000 MG DAILY 12/19 181 AC 12/20 Dextrose/Water 250 ML IV 0942 Results Last 48 Hours of Labs: Laboratory Tests 12/21 12/20 12/20 0745 1133 0600 Chemistry Sodium (137 - 145 mmol/L) Pending 136 L Cancelled Potassium (3.5 - 5.1 mmol/L) Pending 4.1 Cancelled Chloride (98 - 107 mmol/L) Pending 104 Cancelled Carbon Dioxide (22 - 30 mmol/L) Pending 25 Cancelled Anion Gap (5 - 16) Pending 8 Cancelled BUN (7 - 17 mg/dL) Pending 16 Cancelled Creatinine (0.5 - 1.0 mg/dL) Pending 1.1 H Cancelled Estimated GFR (>60 ml/min) 48 L BUN/Creatinine Ratio (7 - 25 %) 14.5 Cancelled Glucose Pending Calcium Pending Phosphorus Pending Magnesium Pending Total Bilirubin Pending AST Pending ALT Pending Albumin Pending Coagulation PT Cancelled INR Cancelled APTT (25 - 37 SEC) 32 Hematology CBC w Diff Pending NO MAN DIFF REQ Cancelled WBC (4.8 - 10.8 /CUMM) Pending 6.9 Cancelled RBC (4.20 - 5.40 /CUMM) Pending 3.08 L Cancelled Hgb (12.0 - 16.0 G/DL) Pending 9.0 L Cancelled Hct (37 - 47 %) Pending 27.5 L Cancelled MCV (81.0 - 99.0 FL) Pending 89.4 Cancelled MCH (27.0 - 31.0 PG) Pending 29.3 Cancelled MCHC (33.0 - 37.0 G/DL) Pending 32.8 L Cancelled RDW (11.5 - 14.5 %) Pending 15.7 H Cancelled Plt Count (130 - 400 /CUMM) Pending 183 Cancelled MPV (7.4 - 10.4 FL) Pending 9.3 Cancelled Gran % (42.2 - 75.2 %) 70.6 Lymphocytes % (20.5 - 51.1 %) 14.6 L Monocytes % (1.7 - 9.3 %) 13.7 H Eosinophils % (0 - 5 %) 0.6 Basophils % (0.0 - 2.0 %) 0.5 Absolute Granulocytes (1.4 - 6.5 /CUMM) 4.9 Absolute Lymphocytes (1.2 - 3.4 /CUMM) 1.0 L Absolute Monocytes (0.10 - 0.60 /CUMM) 0.9 H Absolute Eosinophils (0.0 - 0.7 /CUMM) 0 Absolute Basophils (0.0 - 0.2 /CUMM) 0 12/20 12/19 0052 1600 Chemistry Sodium (137 - 145 mmol/L) 134 L 139 Potassium (3.5 - 5.1 mmol/L) 4.5 3.7 Chloride (98 - 107 mmol/L) 102 108 H Carbon Dioxide (22 - 30 mmol/L) 23 23 Anion Gap (5 - 16) 8 8 BUN (7 - 17 mg/dL) 20 H 17 Creatinine (0.5 - 1.0 mg/dL) 1.3 H 1.1 H Estimated GFR (>60 ml/min) 40 L 48 L BUN/Creatinine Ratio (7 - 25 %) 15.4 15.5 Coagulation PT (9.4 - 12.5 SEC) 12.2 INR (0.90 - 1.19) 1.12 APTT (25 - 37 SEC) 26 Hematology CBC w Diff MAN DIFF ORDERED NO MAN DIFF REQ WBC (4.8 - 10.8 /CUMM) 4.5 L 4.6 L RBC (4.20 - 5.40 /CUMM) 2.17 L 2.57 L Hgb (12.0 - 16.0 G/DL) 6.5 *L 7.7 L Hct (37 - 47 %) 19.5 *L 23.6 L MCV (81.0 - 99.0 FL) 89.6 91.9 MCH (27.0 - 31.0 PG) 30.0 30.2 MCHC (33.0 - 37.0 G/DL) 33.5 32.8 L RDW (11.5 - 14.5 %) 15.4 H 15.5 H Plt Count (130 - 400 /CUMM) 187 204 MPV (7.4 - 10.4 FL) 8.7 9.3 Gran % (42.2 - 75.2 %) 86.3 H 76.5 H Lymphocytes % (20.5 - 51.1 %) 8.4 L 11.4 L Monocytes % (1.7 - 9.3 %) 4.9 7.2 Eosinophils % (0 - 5 %) 0.1 4.3 Basophils % (0.0 - 2.0 %) 0.3 0.6 Absolute Granulocytes (1.4 - 6.5 /CUMM) 3.8 3.5 Segmented Neutrophils (42.2 - 75.2 %) 77 H Band Neutrophils (0.0 - 5.0 %) 1 Absolute Lymphocytes (1.2 - 3.4 /CUMM) 0.4 L 0.5 L Lymphocytes (20.5 - 51.1 %) 14 L Monocytes (1.7 - 9.3 %) 7 Absolute Monocytes (0.10 - 0.60 /CUMM) 0.2 0.3 Absolute Eosinophils (0.0 - 0.7 /CUMM) 0 0.2 Basophils (0.0 - 2.0 %) 1 Absolute Basophils (0.0 - 0.2 /CUMM) 0 0 Platelet Estimate (ADEQUATE) ADEQUATE Polychromasia 1+ Poikilocytosis 1+ Ovalocytes 1+ Other Body Source Fld Total RBCs Counted (%) 100 Assessment/Plan Assessment/Plan This 77 year old female is POD#2 s/p left groin cutdown/iliac angio/thrombectomy , ext iliac stent, with incisional oozing postop, provena vac removed and bulky gauze dressing applied, with acute denny-operative blood loss anemia s/p 2u prbc transfusion with good response, with no dopplerable pedal signals appreciated this am. tolerating diet. d/c iv fluids pain controlled with percocet hep gtt active d/c home with xarelto and asa oob/ambulation as tolerated left groin dressing changed f/u labs f/u cxs ?transition vanco to oral pending cxs f/u ID recommendations d/c planning will d/w Core Measures Venous Thromboembolism VTE Risk Factors Surgery No Mechanical VTE Prophylaxis d/t N/A MechProphylax Ordered No VTE Pharm Prophylaxis d/t Surgical Contraindication
[2017-12-21 09:02] LABS: ABSOLUTE BASOPHIL COUNT 0 /CUMM (0.0-0.2); ABSOLUTE EOSINOPHIL COUNT 0.3 /CUMM (0.0-0.7); ABSOLUTE GRANULOCYTE CT 3.1 /CUMM (1.4-6.5); ABSOLUTE LYMPH COUNT 1.4 /CUMM (1.2-3.4); ABSOLUTE MONOCYTE COUNT 0.7 /CUMM (0.10-0.60); BASOPHIL % 0.6 % (0.0-2.0); EOSINOPHIL % 5.1 % (0-5); HEMATOCRIT 25.8 % (37-47); MEAN CORPUSCULAR HGB 29.6 PG (27.0-31.0); MEAN CORPUSCULAR HGB CONC 32.7 G/DL (33.0-37.0); MEAN CORPUSCULAR VOLUME 90.8 FL (81.0-99.0); MEAN PLATELET VOLUME 9.4 FL (7.4-10.4); PLATELET COUNT 166 /CUMM (130-400); RBC DISTRIBUTION WIDTH 16.2 % (11.5-14.5); RED BLOOD CELL CT 2.84 /CUMM (4.20-5.40); WHITE BLOOD CELL COUNT 5.6 /CUMM (4.8-10.8)
--- NOTE | 2017-12-21 10:12 | PN- Vascular Surgery ---
Subjective Subjective: pt seen and examined. pain in left foot improved. ambulating. marie out. eating. Review of Systems: 10 point review of symptoms performed and noted in subjecive Objective Vital Signs and I&Os Vital Signs Date Time Temp Pulse Resp B/P B/P Pulse O2 O2 Flow FiO2 Mean Ox Delivery Rate 12/21 0637 97.9 82 20 145/51 94 Room Air 12/20 2233 98.4 68 18 128/56 95 Room Air 12/20 2119 70 132/44 12/20 2000 97.5 70 20 132/44 95 Room Air 12/20 1600 97.6 72 24 120/50 96 Room Air Intake & Output 12/21 1600 12/21 0800 12/21 0000 12/20 1600 12/20 0800 12/20 0000 Intake Total 757 185 0874 1095 695 Output Total 750 225 250 100 Balance 588 693 1703 845 595 Intake, Blood 520 Product Intake, IV 680 680 820 575 335 Intake, Oral 100 240 560 0 360 Number 0 0 0 0 0 Bowel Movements Output, Urine 750 225 250 100 Patient 165 lb Weight Weight Reported by Patient Measurement Method reviewed Physical Exam: nad left leg wwp. pop signal. dressing c/d/i. Assessment/Plan Assessment/Plan 77 y/o f s/p left iliac stent thrombectomy and placement of proximal iliac stent. now pod 2. -full heparinization -oob/ambulate -arterial duplex left leg -will discuss with ID about discharge abx regiment. out pt culture groin mssa. -plan for dispo tomorrow with asa/xarelto. Core Measures Venous Thromboembolism VTE Risk Factors Surgery No Mechanical VTE Prophylaxis d/t N/A MechProphylax Ordered No VTE Pharm Prophylaxis d/t Surgical Contraindication
--- NOTE | 2017-12-21 10:48 | PN- Infect Dx ---
Subjective Subjective: Afebrile without complaints. Her left foot pain is improved with analgesics. Objective Last 24 Hrs of Vital Signs/I&O Vital Signs Date Time Temp Pulse Resp B/P B/P Pulse O2 O2 Flow FiO2 Mean Ox Delivery Rate 12/21 0637 97.9 82 20 145/51 94 Room Air 12/20 2233 98.4 68 18 128/56 95 Room Air 12/20 2119 70 132/44 12/20 2000 97.5 70 20 132/44 95 Room Air 12/20 1600 97.6 72 24 120/50 96 Room Air Intake & Output 12/21 1600 12/21 0800 12/21 0000 Intake Total 780 920 Output Total 750 Balance 780 170 Intake, IV 680 680 Intake, Oral 100 240 Number 0 0 Bowel Movements Output, Urine 750 Physical Exam Other Physical Findings: She appears comfortable in no acute distress Lungs are clear Heart regular rhythm with a 1/6 systolic murmur Extremities left groin dressing intact Results Last 24 Hours of Lab Results: Laboratory Tests 12/21 12/20 0745 1133 Chemistry Sodium (137 - 145 mmol/L) 139 136 L Potassium (3.5 - 5.1 mmol/L) 4.1 4.1 Chloride (98 - 107 mmol/L) 108 H 104 Carbon Dioxide (22 - 30 mmol/L) 25 25 Anion Gap (5 - 16) 7 8 BUN (7 - 17 mg/dL) 14 16 Creatinine (0.5 - 1.0 mg/dL) 0.9 1.1 H Estimated GFR (>60 ml/min) > 60 48 L BUN/Creatinine Ratio (7 - 25 %) 14.5 Glucose (65 - 99 mg/dL) 95 Calcium (8.4 - 10.2 mg/dL) 8.2 L Phosphorus (2.5 - 4.5 mg/dL) 2.4 L Magnesium (1.6 - 2.3 mg/dL) 1.9 Total Bilirubin (0.2 - 1.3 mg/dL) 0.8 AST (14 - 36 U/L) 23 ALT (9 - 52 U/L) 27 Albumin (3.5 - 5.0 g/dL) 2.4 L Coagulation APTT (25 - 37 SEC) 32 Hematology CBC w Diff NO MAN DIFF REQ NO MAN DIFF REQ WBC (4.8 - 10.8 /CUMM) 5.6 6.9 RBC (4.20 - 5.40 /CUMM) 2.84 L 3.08 L Hgb (12.0 - 16.0 G/DL) 8.4 L 9.0 L Hct (37 - 47 %) 25.8 L 27.5 L MCV (81.0 - 99.0 FL) 90.8 89.4 MCH (27.0 - 31.0 PG) 29.6 29.3 MCHC (33.0 - 37.0 G/DL) 32.7 L 32.8 L RDW (11.5 - 14.5 %) 16.2 H 15.7 H Plt Count (130 - 400 /CUMM) 166 183 MPV (7.4 - 10.4 FL) 9.4 9.3 Gran % (42.2 - 75.2 %) 56.0 70.6 Lymphocytes % (20.5 - 51.1 %) 25.4 14.6 L Monocytes % (1.7 - 9.3 %) 12.9 H 13.7 H Eosinophils % (0 - 5 %) 5.1 H 0.6 Basophils % (0.0 - 2.0 %) 0.6 0.5 Absolute Granulocytes (1.4 - 6.5 /CUMM) 3.1 4.9 Absolute Lymphocytes (1.2 - 3.4 /CUMM) 1.4 1.0 L Absolute Monocytes (0.10 - 0.60 /CUMM) 0.7 H 0.9 H Absolute Eosinophils (0.0 - 0.7 /CUMM) 0.3 0 Absolute Basophils (0.0 - 0.2 /CUMM) 0 0 Last 24 Hours of Denys Results: Blood cultures 2 December 19 negative OR culture December 19 labeled left inguinal wound positive for Staph aureus sensitive to Oxacillin Assessment/Plan ID Impression: Stable status post left groin cutdown, thrombectomy and iliac stent 2 days ago for ischemic pain in the left foot status post thrombosed iliac stent, with temperatures and white blood cell count remaining normal on Vancomycin, Day 2 of treatment for a surgical site infection in the left groin following her previous surgery. Her OR and outpatient cultures are both positive for Staph aureus sensitive to Oxacillin; therefore her antibiotics can be adjusted. Suggestion: 1. Discontinue Vancomycin 2. Begin Cefazolin 1 g IV every 8 hours, but would change to Keflex 500 mg po every 6 hours upon discharge to complete a week of antibiotics from her recent debridement (until December 26)
--- NOTE | 2017-12-21 11:58 | ULTRASOUND REPORT ---
EXAMINATION: US DUPLEX LOWER EXTREMITY ARTERY/GRAFT LIMITED, LEFT CLINICAL INFORMATION: Status post angioplasty and stenting of left external iliac artery. No distal signal. COMPARISON: None TECHNIQUE: Sonographic imaging of major vessels of the left lower extremity was performed using a curved, 5 MHz transducer as well as a linear, 9 MHz transducer. FINDINGS: Common femoral artery has an abnormal, relatively low acceleration, monophasic waveform with peak velocity of 86 cm/sec; this suggests presence of hemodynamically significant disease within the iliac vessels above. The external iliac artery could not be sonographically visualized. Within the proximal thigh, the visualized proximal profunda femoris artery is patent with peak velocity of 77 cm/sec. There is no flow detected within the SFA within the proximal or mid thigh. Within the distal thigh, the visualized SFA exhibits abnormal monophasic waveform, peak velocity of 91 cm/sec. Popliteal artery exhibits abnormal low acceleration, monophasic waveform with peak systolic velocity of 93 cm/sec, proximally and 32 cm/sec, distally. Posterior tibial artery exhibits abnormal monophasic waveform throughout the leg with peak systolic velocities of 40 cm/sec, proximally, 27 cm/sec mid leg, and 32 cm/sec, distally. The visualized proximal, middle and distal segments of the peroneal artery exhibit abnormal monophasic flow and peak velocities of 14, 15 and 17 cm/sec, respectively. The visualized proximal, middle and distal segments of the anterior tibial artery exhibit abnormal monophasic, low amplitude flow with peak systolic velocities of 15, 18 and 13 cm/sec, respectively. There is abnormally weak flow detected in the dorsalis pedis artery, peak systolic velocity of 20 cm/sec. Incidentally noted is noncompressible thrombosis of the greater saphenous vein from the level of the knee. IMPRESSION: 1. There is hemodynamically significant peripheral disease, as noted above. Common femoral artery has an abnormal, relatively low acceleration, monophasic waveform which suggests presence of significant disease in the iliac vessels above. 2. SFA appears occluded within the [id number] thigh. There is abnormal monophasic flow detected within the popliteal and lower leg vessels. 3. Incidentally noted is thrombosis within the incompletely evaluated greater saphenous vein.
[2017-12-21 14:13] VITALS: BP 138/60
[2017-12-21 20:45] VITALS: BP 138/60
[2017-12-21 20:49] LABS: PTT > 120 SEC (25-37)
[2017-12-22 04:09] LABS: PTT > 120 SEC (25-37)
[2017-12-22 06:17] VITALS: BP 174/60
[2017-12-22] MEDS ORDERED: KEFLEX500 M1 PO (08:47)
[2017-12-22] MEDS ORDERED: PERCOCET 5-3251 EACH PO (08:49)
--- NOTE | 2017-12-22 08:50 | PN- Vascular Surgery ---
Subjective Subjective: Reports improved pain in her feet. Denies fever, chills, nausea, vomiting. Eager to go home. Offers no other complaints. Objective Vital Signs and I&Os Vital Signs Date Time Temp Pulse Resp B/P B/P Pulse O2 O2 Flow FiO2 Mean Ox Delivery Rate 12/22 0617 97.8 96 20 174/60 97 Room Air 12/21 204 98.1 76 16 138/60 95 Room Air 12/21 2041 76 138/60 12/21 1413 97.5 72 20 138/60 95 Room Air 12/21 1205 82 146/52 12/21 1204 82 146/52 Intake & Output 12/22 1600 12/22 0800 12/22 0000 12/21 1600 12/21 0800 12/21 0000 Intake Total 433.2 272 722 780 920 Output Total 400 300 750 Balance 33.2 -28 722 780 170 Intake, IV 133.2 52 242 680 680 Intake, Oral 300 220 480 100 240 Number 0 0 0 0 0 Bowel Movements Output, Urine 400 300 750 Patient 168 lb Weight Weight Bed scale Measurement Method Physical Exam: General - resting comfortable in nad Lungs - CTAB Cardiac - S1S2 Abdomen - soft, nontender, ecchymosis noted in pelvic/right groin Extremities - left groin dressing changed, incision approximated with amy with mild surrounding induration and swelling, no erythema or drainage noted, left foot warm with dopplerable popliteal and PT signal, no DP noted, nvi. Assessment/Plan Assessment/Plan 77 F is POD 3 s/p left groin cutdown/iliac angio/thrombectomy, ext iliac stent, with provena vac placment and removal, final cx from previous surgery revealed mssa, recovering well Cardiac diet Pain regimen prn Hep gtt active, will transition to xarelto and asa Ancef per ID D/c home with keflex 500 q6 until 12/26 OOB/ambulation as tolerated Dry dressing changes daily D/c home later today with [facility] Will d/w Core Measures Venous Thromboembolism VTE Risk Factors Surgery No Mechanical VTE Prophylaxis d/t N/A MechProphylax Ordered No VTE Pharm Prophylaxis d/t Surgical Contraindication
[2017-12-22 10:13] VITALS: BP 136/62
[2017-12-22] MEDS ORDERED: XARELTO15 M1 PO (10:56)
[2017-12-22 12:22] LABS: PTT 74 SEC (25-37)
== END 2017-12-22 12:52 | disposition home health service (06) | DRG 271 ==
LOC: SDA 01:48 → 2NA 01:48 → CRI 01:48 → SDA 07:00 → ENRESERV 16:59 → ENTRNSPT 17:41 → EDTRNSPTSTS 17:57 → EDTRNSPT 17:57 → CRI 18:27 → CMPTRNSPT 18:35 → 2NA 12-20 22:03 → ENPENDDIS 12-22 11:22 → ENTRNSPT 12-22 12:38 → EDTRNSPTTYP 12-22 12:46 → EDTRNSPT 12-22 12:46 → CMPTRNSPT 12-22 12:46 → 2NA 12-22 12:52
PROVIDERS: Nurse Practitioner; Physician Assistant Surgical; Surgery Vascular Surgery
PROC: 047J04Z Dilation of Left External Iliac Artery with Drug-eluting Intraluminal Device, Open Approach (ICD-10-PCS; principal; 2017-12-19)
PROC: B40DYZZ Plain Radiography of Aorta and Bilateral Lower Extremity Arteries using Other Contrast (ICD-10-PCS; principal; 2017-12-19)
PROC: 04CJ0ZZ Extirpation of Matter from Left External Iliac Artery, Open Approach (ICD-10-PCS; principal; 2017-12-19)
PROC: 2W17X6Z Compression of Left Inguinal Region using Pressure Dressing (ICD-10-PCS; 2017-12-19)
PROC: 30233N1 Transfusion of Nonautologous Red Blood Cells into Peripheral Vein, Percutaneous Approach (ICD-10-PCS; 2017-12-20)
DX: T82.868A Thrombosis due to vascular prosthetic devices, implants and grafts, initial encounter (principal); T81.4XXA Infection following a procedure, initial encounter; N17.9 Acute kidney failure, unspecified; J44.9 Chronic obstructive pulmonary disease, unspecified; I70.222 Atherosclerosis of native arteries of extremities with rest pain, left leg; D62 Acute posthemorrhagic anemia; I47.1 Supraventricular tachycardia; L08.9 Local infection of the skin and subcutaneous tissue, unspecified; A49.01 Methicillin susceptible Staphylococcus aureus infection, unspecified site; E03.9 Hypothyroidism, unspecified; I10 Essential (primary) hypertension; I73.00 Raynaud's syndrome without gangrene; G56.00 Carpal tunnel syndrome, unspecified upper limb; Z79.01 Long term (current) use of anticoagulants; Z95.3 Presence of xenogenic heart valve; Z95.9 Presence of cardiac and vascular implant and graft, unspecified; Z88.5 Allergy status to narcotic agent; Z88.8 Allergy status to other drugs, medicaments and biological substances
CPT/HCPCS: 2NASP; 87070; 87075; 87184; CCU; 36415; 36592; 74018; 82436; 86920; 87040; 87086; 87147; 93005; 93010; 97110-GO; 97116-GO; 97161-GP; 97530-GO; C1725; C1876; C9399; J0131; J0690; J0713; J1644; J3370; J7042; J7060; P9016; Q9967